=== PATIENT | male | born 1970 | race Caucasian/White ===

== ENCOUNTER → 2017-10-11 | Outpatient (CLI) | payer OTHER ==
[~2017-10-11] MED LIST: CORTIS10A AD
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
--- NOTE | 2017-10-11 11:13 | RADRPT ---
EXAM DATE: 10/11/2017 10:57 AM EDT AGE/SEX: 47 years / Male INDICATIONS: Abdominal pain. CLINICAL DATA: This is the patient's initial encounter. Patient reports that signs and symptoms have been present for > 1 year and indicates a pain score of 2/10. MEDICAL/SURGICAL HISTORY: . Abdominal pain. . None. COMPARISON: No prior [facility] exams available for comparison. No external comparison. MEASUREMENTS: Liver:__ 15.6 cm. Common Bile Duct:___ 4mm. Right Kidney:___ . Left Kidney:___10.5 x 5.0 x 5.0 . Spleen:___11.3 . Aorta: The proximal portion measures 1.9 cm maximal. FINDINGS: Liver: Normal echotexture without focal lesion or ductal dilation. Portal Vein: Hepatopedal flow seen in portal vein. Common Duct: No intraluminal mass or stone visualized. Gallbladder: Demonstrates no wall thickening or pericholecystic fluid. No stones visualized. Gallbl adder Wall: 2 mm Pancreas: The visualized portions are within normal limits. Right Kidney: No mass or hydronephrosis. Measures Left Kidney: No mass or hydronephrosis. Measures Ascites: None. Pleural Effusion: None Spleen: No focal lesion. Aorta: Non aneurysmal. IVC: Within normal limits. CONCLUSION: 1. Unremarkable abdominal ultrasound exam. 2. Specifically, no cholelithiasis or sonographic evidence for acute cholecystitis. Electronically signed by: Vick Randhawa MD 10/11/2017 11:11 AM EDT
== END ==
LOC: HRAD 09:07
PROVIDERS: ATTEND Family Medicine
DX: R10.9 Unspecified abdominal pain (principal); G89.29 Other chronic pain
CPT/HCPCS: 72040; 72072; 72100; 76700